=== PATIENT | female | born 1975 | race Two or more races ===

== ENCOUNTER 2018-04-18 08:10 | Outpatient (CLI) | payer OTHER | END 2018-04-18 08:12 | disposition home or self-care (01) | LOC: SONOGRAMA 08:10 | DX: E04.1 Nontoxic single thyroid nodule (principal) ==

== ENCOUNTER 2020-07-29 08:52 | Outpatient (CLI) | payer OTHER | END 2020-07-29 08:57 | disposition home or self-care (01) | LOC: SONOGRAMA 08:52 | PROVIDERS: ATTEND Pathology Anatomic Pathology & Clinical Pathology | DX: E04.1 Nontoxic single thyroid nodule (principal) ==

== ENCOUNTER 2023-06-04 15:59 | Outpatient (CLI) | payer OTHER | END 2023-06-04 16:07 | disposition home or self-care (01) | LOC: SONOGRAMA 15:59 | PROVIDERS: ATTEND Pathology Anatomic Pathology & Clinical Pathology | DX: D34 Benign neoplasm of thyroid gland (principal); E03.8 Other specified hypothyroidism ==